=== PATIENT | male | born 1970 | race Caucasian/White ===

== ENCOUNTER 2017-07-28 22:02 | Emergency (ER) | payer OTHER ==
[2017-07-28] MEDS ORDERED: Morphine INJ* 4 MG/ML 1 ML CARPUJECT IV ONE (22:41)
[2017-07-28] MEDS ORDERED: Ondansetron INJ* 2 MG/ML VIAL IV ONE (22:41)
[2017-07-28 22:53] LABS: Hematocrit 44 % (42-52); Hemoglobin 15.3 g/dl (14.0-18.0); Mean Corpuscular HGB Conc 35 g/dl (31-36); Mean Corpuscular Hemoglobin 31 pg (27-31); Mean Corpuscular Volume 89 fL (80-94); Mean Platelet Volume 8 um3 (7.4-10.4); Red Blood Count 4.97 10^6/ul (4.0-5.4); Red Cell Distribution Width 13 % (10.5-15)
[2017-07-28 23:07] LABS: BUN/Creatinine Ratio 13.6 (8-20); Calcium 9.1 mg/dL (8.6-10.3); EGFR African American 98.7 (>60); EGFR Non-African American 76.8 (>60); Potassium 4.1 mmol/L (3.5-5.0)
[2017-07-28] MEDS ORDERED: Tetan/Diph/Pertus SYR(Tdap)* 0.5 ML SYR(BOOSTRIX) use SYR IM ONE ×2 (23:25→23:57)
[2017-07-28] MEDS ORDERED: Ketorolac INJ* 30 MG/ML 1 ML VIAL IV PUSH ONE (23:25)
--- NOTE | 2017-07-29 00:11 | ED ---
Lower Extremity - HPI Summary HPI Summary: Pt here w/ Lt ankle injury prior to arrival. Was walking on stairs when he slipped on a drill bit, fell and his leg went under him - has ankle pain and swelling since. Can move toes and denies numbness, tingling, weakness. He has an abrasion on medial aspect of ankle - unsure of last tetanus but believes he is due for one. No h/o fx or injury here prior. No other injury with fall. - History of Current Complaint Chief Complaint: EDExtremityLower Stated Complaint: LEFT ANKLE PAIN Time Seen by Provider: 07/28/17 22:20 Hx Obtained From: Patient Pain Intensity: 8 - Allergies/Home Medications Allergies/Adverse Reactions: Allergies Allergy/AdvReac Type Severity Reaction Status Date / Time No Known Allergies Allergy Verified 09/02/12 15:47 PMH/Surg Hx/FS Hx/Imm Hx Previously Healthy: Yes Endocrine/Hematology History: Denies: Hx Anticoagulant Therapy, Hx Blood Disorders, Hx Diabetes, Hx Thyroid Disease Cardiovascular History: Denies: Hx Hypertension Respiratory History: Reports: Hx Sleep Apnea Denies: Hx Asthma, Hx Chronic Obstructive Pulmonary Disease (COPD) GI History: Denies: Hx Ulcer - Immunization History Immunizations Up to Date: No Infectious Disease History: No Infectious Disease History: Denies: Hx Hepatitis, Hx Human Immunodeficiency Virus (HIV), Traveled Outside the [place] in Last 30 Days - Family History Known Family History: Positive: None - Social History Occupation: Employed Full-time Lives: With Family Alcohol Use: Occasionally Alcohol Amount: Monthly Hx Substance Use: No Substance Use Type: Reports: None Hx Tobacco Use: Yes Smoking Status (MU): Current Some Day Smoker Review of Systems Constitutional: Negative Negative: Fever, Chills, Fatigue Positive: Bruising - swelling, abrasion over medial ankle Positive: Weakness - cannot move ankle. Negative: Paresthesia, Numbness, Syncope, Slurred Speech Psychological: Normal All Other Systems Reviewed And Are Negative: Yes Physical Exam Triage Information Reviewed: Yes Vital Signs On Initial Exam: Initial Vitals Temp Pulse Resp BP Pulse Ox 99.2 F 75 16 135/55 97 07/28/17 22:03 07/28/17 22:03 07/28/17 22:03 07/28/17 22:03 07/28/17 22:03 Vital Signs Reviewed: Yes Appearance: Positive: Well-Appearing, Pain Distress - mild to moderate, Obese Skin: Positive: Warm, Dry - superficial abrasion over Lt medial malleolus - does not appear to have open fracture here Head/Face: Positive: Normal Head/Face Inspection Eyes: Positive: Normal, EOMI ENT: Positive: Hearing grossly normal Respiratory/Lung Sounds: Positive: Breath Sounds Present Cardiovascular: Positive: RRR, Pulses are Symmetrical in both Upper and Lower Extremities - DP and PT + 2. Negative: Leg Edema Left - ankle w/ focal edema, Leg Edema Right Musculoskeletal: Positive: Strength/ROM Intact - toes, Limited @ - Left ankle Neurological: Positive: Normal, Sensory/Motor Intact - limited Lt ankle movement d/t pain, swelling, deformity, Alert, Oriented to Person Place, Time, CN Intact II-III Psychiatric: Positive: Normal - [place] Coma Scale Coma Scale Total: 15 Procedures - Splinting Location: Lt LE Hand-Made Type: fiberglass Splint: posterior walking - + sugar tong Pre-Proc Neuro Vasc Exam: normal Post-Proc Neuro Vasc Exam: normal Diagnostics - Vital Signs Vital Signs Temp Pulse Resp BP Pulse Ox 07/28/17 23:07 82 94 07/28/17 22:51 22 07/28/17 22:03 99.2 F 75 16 135/55 97 - Laboratory Lab Results: Lab Results 07/28/17 07/28/17 Range/Units 22:45 22:45 WBC 8.0 (3.5-10.8) 10^3/ul RBC 4.97 (4.0-5.4) 10^6/ul Hgb 15.3 (14.0-18.0) g/dl Hct 44 (42-52) % MCV 89 (80-94) fL MCH 31 (27-31) pg MCHC 35 (31-36) g/dl RDW 13 (10.5-15) % Plt Count 172 (150-450) 10^3/ul MPV 8 (7.4-10.4) um3 Neut % (Auto) 71.5 (38-83) % Lymph % (Auto) 19.7 L (25-47) % Haines % (Auto) 6.5 (1-9) % Eos % (Auto) 1.7 (0-6) % Baso % (Auto) 0.6 (0-2) % Absolute Neuts (auto) 5.7 (1.5-7.7) 10^3/ul Absolute Lymphs (auto) 1.6 (1.0-4.8) 10^3/ul Absolute Monos (auto) 0.5 (0-0.8) 10^3/ul Absolute Eos (auto) 0.1 (0-0.6) 10^3/ul Absolute Basos (auto) 0 (0-0.2) 10^3/ul Absolute Nucleated RBC 0.01 10^3/ul Nucleated RBC % 0.1 Sodium 139 (133-145) mmol/L Potassium 4.1 (3.5-5.0) mmol/L Chloride 103 (101-111) mmol/L Carbon Dioxide 25 (22-32) mmol/L Anion Gap 11 (2-11) mmol/L BUN 14 (6-24) mg/dL Creatinine 1.03 (0.67-1.17) mg/dL Est GFR ( Amer) 98.7 (>60) Est GFR (Non-Af Amer) 76.8 (>60) BUN/Creatinine Ratio 13.6 (8-20) Glucose 113 H (70-100) mg/dL Calcium 9.1 (8.6-10.3) mg/dL Result Diagrams: 07/28/17 22:45 07/28/17 22:45 Lab Statement: Any lab studies that have been ordered have been reviewed, and results considered in the medical decision making process. Re-Evaluation - Re-Evaluation First Eval Change: Improved - pt reports pain improved a great deal after toradol and even moreso after splinting Lower Extremity Course/Dx - Course Course Of Treatment: Pt presents w/ Lt ankle injury prior to arrival - states after he fell on his stairs, he injured his ankle which was dangling. Karishma XR reveals a distal fibular fracture w/ minimal displacement and widened medial malleolar space in relation to the talus (appears to have ligamentous injury here). He is N/V intact. Discussed w/ Dr. Ayala who advised splint and f/u. Pt reports he has planned to fly to [place] tomorrow however advised this would be dangerous and increase risk for DVT. He has made alternate plans to drive to a friend's house in [place]. Agrees to stay hydrated, stop frequently, keep leg elevated on the trip and start 325mg ASA daily until travels subsibe. He will also monitor for danger s/sx of compartment syndrome and DVT. Discussed dx and care plan w/ friend, Gisela, as well who has arranged ortho f/u for him once he arrives in [place] over the next 1-2 days. Meds provided from pharmacy here as his is closed and he'll be traveling. - Diagnoses Provider Diagnoses: Closed left ankle fracture, Abrasion of ankle, left - Physician Notifications Discussed Care Of Patient With: Robyn Ayala Discharge - Discharge Plan Condition: Stable Disposition: HOME Patient Education Materials: Ankle Fracture (ED), Crutch Instructions (ED), Splint Care (ED) Forms: *Work Release Referrals: Frandy Coreas MD [Medical Doctor] - Additional Instructions: Rest, ice, elevate and keep splint clean, dry and in place until seen by management specialist (if you stay in [facility], a local provider's contact information has been included in this paperwork - see below). Call Sunday to schedule an appointment. Use crutches to avoid weight bearing You may take ibuprofen 800mg every 8 hours with food alternating with norco every 6 hours for pain control For you travel, it is advised that you drive versus flying with frequent breaks and plenty of toe and knee movement. You may also benefit from taking an Aspirin 325mg daily with food until travel is completed. *If you develop numbness, tingling, weakness, you may loosen the SHARATH wrap and elevate leg for 20 minutes - if symptoms persist, go to ED *If you develop calf pain, swelling, chest pain, shortness of breath, fever, bloody cough, go to the ED
[2017-07-29] MEDS ORDERED: Ibuprofen TAB* 800 MG PO ONE (01:13)
[2017-07-29] MEDS ORDERED: HYDROcodone/ACETAMIN 5-325 MG* 1 TAB PO ONE (01:17)
[2017-07-29 02:19] VITALS: BP 148/67
--- NOTE | 2017-07-29 09:03 | RAD ---
Indication: Left ankle injury. 2 views of left ankle demonstrates spiral fracture of the distal fibula. There is lateral subluxation of the talus. IMPRESSION: Spiral fracture distal fibula with lateral subluxation talus.
== END 2017-07-29 02:22 | disposition home or self-care (01) ==
LOC: ED 22:02
DX: S82.832A Other fracture of upper and lower end of left fibula, initial encounter for closed fracture (principal); W01.0XXA Fall on same level from slipping, tripping and stumbling without subsequent striking against object, initial encounter; Y93.01 Activity, walking, marching and hiking; Y92.9 Unspecified place or not applicable; Y99.9 Unspecified external cause status; F17.200 Nicotine dependence, unspecified, uncomplicated; Z23 Encounter for immunization
CPT/HCPCS: 36415; 80048; 85025; 90715; 96374; 96375; 99282; J1885; J2270; J2405